=== PATIENT | female | born 1960 | race African-American/Black ===

== ENCOUNTER → 2016-11-09 | Outpatient (CLI) | payer OTHER ==
[2016-05-26 15:00] VITALS: BP 148/70
[~2016-11-09] MED LIST: ASPI81TA50 PO; BISO1TAB7 PO; CEPH-264 PO; DOCU-27 PO; GABA-586 PO; HYDR-2672 PO; IBUP-1027 PO; LOSA100T6 PO; MAGN400O4 PO; MORP30TA3 PO; RIVA15TA PO
--- NOTE | 2016-11-10 08:59 | KCIC ---
PROCEDURE Bilateral digital screening mammogram. HISTORY 56-year-old female presents for screening mammography. TECHNIQUE Full field digital craniocaudal and mediolateral oblique views of both breasts were obtained. Computer-aided detection is applied. COMPARISON 03/30/2013 FINDINGS Breast parenchymal composition: Level A - Mostly fat. There is a small nodule within the right axillary tail which is likely excluded from the field of view on the prior studies, the appearance of which is consistent with an axillary tail lymph node. There is a stable tiny nodule within the posterior retroareolar left breast. The near 4 year coarse of stability favors benignity. There are few benign calcifications within both breasts. There is no architectural distortion. IMPRESSION BI-RADS Category 2: Benign findings. Annual mammography is recommended. This study was interpreted with the benefit of Computerized Aided Detection (CAD). Mammography is not 100% sensitive in detecting breast cancer. Therefore, a self breast exam and a clinical breast exam are very important. A negative mammogram does not negate a clinically suspicious finding and should not result in a delay in biopsying a clinically suspicious abnormality. The patient information was entered into a reminder system with a target date for her next mammogram in year. Electronically signed by: Georgette Bartlett (November 10, 2016 08:58:07)
== END | disposition home or self-care (01) ==
LOC: KCIC MAMMO 16:21
PROVIDERS: ATTEND Family Medicine
DX: Z12.31 Encounter for screening mammogram for malignant neoplasm of breast (principal)
CPT/HCPCS: G0202; 77067

== ENCOUNTER 2016-12-14 07:44 | Outpatient (CLI) | payer OTHER ==
[~2016-12-14] VITALS: Ht 154.9 cm; Wt 102.1 kg
[2016-12-14 08:08] LABS: BASO # 0.1 x10^3/uL (0.0-0.2); BASO % 2 % (0-3); EOS % 3 % (0-3); HEMATOCRIT 40.1 % (36.0-47.0); HEMOGLOBIN 12.9 g/dL (12.0-15.5); LYMPH # 2.4 x10^3/uL (1.0-4.8); LYMPH % 33 % (24-48); MEAN CORPUSCULAR HEMOGLOBIN 26 pg (25-35); MEAN CORPUSCULAR HGB CONC 32 g/dL (31-37); MEAN CORPUSCULAR VOLUME 82 fL (79-100); MONO % 8 % (0-9); NEUT % 55 % (31-73); PLATELET COUNT 392 x10^3/uL (140-400); RED BLOOD COUNT 4.91 x10^6/uL (3.50-5.40); RED CELL DISTRIBUTION WIDTH 15.3 % (11.5-14.5); WHITE BLOOD COUNT 7.4 x10^3/uL (4.0-11.0)
[2016-12-14] MEDS ORDERED: GABA-585 PO (08:08)
[2016-12-14] MEDS ORDERED: SUMA100T4 PO (08:08)
[2016-12-14] MEDS ORDERED: LOSA1TAB17 PO (08:08)
[2016-12-14 08:20] LABS: INR 1.1 (0.8-1.1); PROTHROMBIN TIME PATIENT 13.5 SEC (11.7-14.0)
[2016-12-14 08:31] VITALS: BP 141/83
[2016-12-14] MEDS ORDERED: GADOBUTROL 7.5 MMOL/7.5 ML VIAL ONE (10:28)
[2016-12-14] MEDS ORDERED: LIDOCAINE 1% / SOD BICARB 8.4% 20 ML VIAL. IJ ONE ×2 (10:28→11:00)
[2016-12-14] MEDS ORDERED: fentaNYL PF VIAL 100 MCG/2 ML VIAL ONE ×2 (10:32→10:47)
[2016-12-14] MEDS ORDERED: MIDAZOLAM HCL/PF 2 MG/2 ML VIAL. ONE ×2 (10:33→10:47)
[2016-12-14] MEDS ORDERED: fentaNYL PF VIAL 100 MCG/2 ML VIAL IV ONE (11:00)
[2016-12-14] MEDS ORDERED: GADOBUTROL 7.5 MMOL/7.5 ML VIAL INT ART ONE (11:00)
[2016-12-14] MEDS ORDERED: MIDAZOLAM HCL/PF 2 MG/2 ML VIAL. IV ONE (11:00)
[2016-12-14 11:19] VITALS: BP 118/64
[2016-12-14 11:31] VITALS: BP 118/56
--- NOTE | 2016-12-14 11:41 | PDOC ---
MODERATE SEDATION ASSESSMENT RISKS/ALTERNATIVES Risks/Alternatives Risks and alternatives of this type of sedation and procedure discussed with: RISK/ALTERNATIVES: Patient H & P ON CHART H & P H & P on chart and reviewed for co-morbid conditions and appropriate labs. H&P ON CHART: Yes STATUS PREG STATUS ASSESSED: N/A MEDS/ALLERGIES REVIEWED Meds/Allergies Reviewed Medications and Allergies including time and route of recently administered narcotics and sedatives. MEDS/ALLERGIES REVIEWED: Yes ASA RATING ASA RATING: I AIRWAY ASSESSMENT Airway Assessment Airway patency, oral function limitations, presence of caps, crowns, dentures, partials, and ability to extend neck assessed. AIRWAY ASSESSMENT: Yes MALLAMPATI SCORE MALLAMPATI SCORE: II PRE-SEDATION ASSESSMENT PRE-SEDATION ASSESSMENT: Yes MACKENZIE GREEN MD Dec 14, 2016 11:41
[2016-12-14 11:51] VITALS: BP 126/73
--- NOTE | 2016-12-14 11:51 | PDOC1 ---
History and Physical Date of Procedure Date of Admission 12/14/16 Procedure Procedure Sono/fluoro guided IVC filter retrieval Indication Indication 56 YO female with left lower extremity DVT by Doppler 05/19/16. Retrievable Bard [place] IVC filter inserted 05/21/16 due to discontinuation of anticoagulation for L-spine fusion done 05/22/16. DVT and PE risk resolved---IVC filter retrieval requested. Past Medical History Past Medical History See Nursing Pre procedure PMH Past Surgical History Past Surgical History See Nursing Pre procedure PSH Current Medications Current Medications Current Medications Gadobutrol (Gadavist) 7.5 mmol STK-MED ONCE .ROUTE ; Start 12/14/16 at 10:28; Stop 12/14/16 at 10:29; Status DC Lidocaine/Sodium Bicarbonate (Buffered Lidocaine 1%) 20 ml STK-MED ONCE IJ ; Start 12/14/16 at 10:28; Stop 12/14/16 at 10:29; Status DC Heparin Sodium/ Sodium Chloride 500 ml @ As Directed STK-MED ONCE .ROUTE ; Start 12/14/16 at 10:29; Stop 12/14/16 at 10:30; Status DC Fentanyl Citrate (Fentanyl 2ml Vial) 100 mcg STK-MED ONCE .ROUTE ; Start at 10:32; Stop 12/14/16 at 10:33; Status DC Midazolam HCl (Versed) 2 mg STK-MED ONCE .ROUTE ; Start 12/14/16 at 10:33; Stop 12/14/16 at 10:34; Status DC Fentanyl Citrate (Fentanyl 2ml Vial) 100 mcg STK-MED ONCE .ROUTE ; Start at 10:47; Stop 12/14/16 at 10:48; Status DC Midazolam HCl (Versed) 2 mg STK-MED ONCE .ROUTE ; Start 12/14/16 at 10:47; Stop 12/14/16 at 10:48; Status DC Heparin Sodium/ Sodium Chloride 1,000 unit 1X ONCE IART Last administered on 11:18; Start 12/14/16 at 11:00; Stop 12/14/16 at 11:01; Status DC Lidocaine/Sodium Bicarbonate (Buffered Lidocaine 1%) 6 ml 1X ONCE IJ Last administered on 12/14/16 11:18; Start 12/14/16 at 11:00; Stop 12/14/16 at 11:01; Status DC Midazolam HCl (Versed) 3 mg 1X ONCE IV Last administered on 12/14/16 11:18; Start 12/14/16 at 11:00; Stop 12/14/16 at 11:01; Status DC Fentanyl Citrate (Fentanyl 2ml Vial) 150 mcg 1X ONCE IV Last administered on 11:19; Start 12/14/16 at 11:00; Stop 12/14/16 at 11:01; Status DC Gadobutrol (Gadavist) 7.5 mmol 1X ONCE INT ART Last administered on 12/14/16 11:18; Start 12/14/16 at 11:00; Stop 12/14/16 at 11:01; Status DC Active Scripts Active Reported Sumatriptan Succinate 100 Mg Tablet 100 Mg PO ONCE PRN Gabapentin 100 Mg Capsule 100 Mg PO TID Losartan-Hctz 100-25 Mg Tab (Losartan/Hydrochlorothiazide) 1 Each Tablet 1 Tab PO DAILY Bisoprolol-Hctz 10-6.25 Mg Tab (Bisoprolol Fumarate/Hctz) 1 Each Tablet 0.05 Tab PO DAILY Hydrocodone-Apap 10-325 (Hydrocodone Bit/Acetaminophen) 1 Each Tablet 1 Tab PO PRN Q6HRS PRN Aspir-Low (Aspirin) 81 Mg Tablet. 1 Tab PO DAILY Allergies Allergies: Coded Allergies: Iodinated Contrast Media - Oral and (Verified Allergy, Intermediate, Rash , 05/22/16) Physical Exam Vital Signs Vital Signs Date Time Temp Pulse Resp B/P (MAP) Pulse Ox O2 Delivery O2 Flow Rate FiO2 12/14/16 11:19 64 18 100 Nasal Cannula 2.0 12/14/16 08:31 98.6 141/83 (102) 98.6 Lungs: Clear to auscultation Heart: Regular rate Psych/Mental Status: Mental status NL Diagnostic Data/Imaging Images PMC IVC filter insertion images from 05/21/16 reviewed. Assessment Assessment DCT and PE risk resolved----IVC filter retrieval requested and indicated. Problems: Plan Plan Sono/fluoro guided IVC filter retrieval MACKENZIE GREEN MD Dec 14, 2016 11:51
--- NOTE | 2016-12-14 11:57 | PDOC ---
Exam Resident Physician In Radiology Resident Physician In Radiology Cora Professor Of Management Professor Of Management Antonio Palma Pre-Procedure Diagnosis Pre-Procedure Diagnosis 56 YO female s/p insertion of retrievable Bard [place] IVC filter 05/21/16 due to discontinuation of anticoagulation for left lower extremity DVT prior to L- spine fusion 05/22/16. Post-Procedure Diagnosis Post-Procedure Diagnosis Same Procedure Performed Procedure Performed Sono/fluoro guided retrieval of Bard [place] IVC filter. Type of Anesthesia Type of Anesthesia Local + Mod sedation. Estimated Blood Loss EBL: Minimal Specimens Specimans Bard [place] retrievable IVC filter removed and discarded Condition of Patient Condition of Patient Stable. No apparent complication. Disposition Disposition Home from [facility] post recovery, if no problems. F/u with referring MD. Full report to follow. MACKENZIE GREEN MD Dec 14, 2016 11:57
[2016-12-14 12:06] VITALS: BP 138/68
[2016-12-14 12:21] VITALS: BP 154/78
--- NOTE | 2016-12-14 15:02 | RAD ---
Ultrasound and Fluoroscopy guided snare retrieval of inferior vena cava filter Indication: 56-year-old female who was diagnosed with left lower extremity DVT 05/19/2016. She then underwent successful, uneventful insertion of a Bard [place] retrievable infrarenal inferior vena cava filter 05/21/2016, due to discontinuation of anticoagulation prior to lumbar spine surgery on 05/22/2016. Her DVT with risk of pulmonary embolus has resolved. IVC filter retrieval has been requested. Fluoroscopy time: Kerma-area product: 9.6 minutes 68 Contrast material: 30 cc gadolinium Anesthesia: 31 minutes moderate sedation was provided utilizing a total of 3 mg Versed and 150 mcg fentanyl, IV. The patient was appropriately monitored by a qualified independent observer throughout the time of moderate sedation. Sterility: All elements of maximal sterile barrier technique, hand hygiene, skin preparation, and, if ultrasound was used, sterile ultrasound technique were followed. Consent: The procedure was explained in its entirety to the patient and/or the patient's designated mill representative by a member of the treatment team. This included a discussion of risks and benefits and commonly accepted alternatives to the procedure, as well as expected consequences of no treatment at all. Discussion of risks included, but was not limited to, those that are most frequent and those that are rare, but possibly severe or life-threatening, as well as the possibility of unforeseen complications. Procedure: Informed consent was obtained from the patient. She was placed supine on the angiography table. Preliminary fluoroscopic evaluation confirmed the presence of a an indwelling retrievable Bard [place] inferior vena cava filter. Preliminary ultrasound examination of right neck revealed wide patency of right internal jugular vein. This was documented with a single hard copy ultrasound image. Right neck was then prepped and draped in the usual sterile fashion, utilizing all elements of maximal sterile barrier technique, as described above. Moderate sedation was provided with IV Versed and fentanyl. Using aseptic technique, local anesthesia, direct sterile ultrasound guidance, and the micropuncture system, a 5 Stateless right IJ sheath was successfully introduced. A 5 Stateless Omni Flush catheter was advanced through the IJ sheath, and was successfully advanced inferiorly to lie adjacent to the indwelling inferior vena cava filter utilizing fluoroscopic guidance. Gadolinium was then injected and DSA images were obtained, which revealed brisk antegrade flow through inferior vena cava, without obstructing thrombus identified within the filter. The 5 Stateless right IJ sheath was then removed over a guidewire. The percutaneous tract was dilated and a 10 Stateless 40 cm long right IJ sheath was advanced into suprarenal inferior vena cava. A 7 Stateless 55 cm long sheath was then coaxially inserted through the 10 Stateless sheath and was positioned immediately above the IVC filter. Using aseptic technique and fluoroscopic guidance, an En Snare endovascular snare was advanced through the 7 Stateless sheath and was utilized to successfully engage retrieval hook of the Bard [place] IVC filter. The 7 Stateless sheath was then advanced over the snare, producing partial collapse of the IVC filter. The 10 Stateless sheath was then advanced over the 7 Stateless sheath and snare, producing essentially complete collapse of the IVC filter. The 7 Stateless sheath, and the intravascular snare, and the collapsed IVC filter were then completely removed from the body through the 10 Stateless sheath. Careful bench inspection of the removed the Mchenry IVC filter confirmed complete filter removal, without component fracture. Gadolinium was then injected through the 10 Stateless sheath and completion IVC gram DSA images were obtained. Those images confirmed complete removal of the IVC filter, without evidence of residual radiopaque filter fragment. Those images revealed some luminal irregularity of inferior vena cava, without contrast extravasation. The 10 Stateless sheath was then removed and hemostasis was achieved with V pad and manual pressure over right internal jugular vein. Patient tolerated the procedure well without apparent complication. Impression: Successful, uneventful ultrasound and fluoroscopy guided removal of infrarenal Bard [place] retrievable IVC filter, as described.
== END 2016-12-14 13:18 | disposition home or self-care (01) ==
LOC: INTRAD 07:44
PROVIDERS: ATTEND Internal Medicine Hematology & Oncology
DX: I82.402 Acute embolism and thrombosis of unspecified deep veins of left lower extremity (principal); I10 Essential (primary) hypertension; K21.9 Gastro-esophageal reflux disease without esophagitis; Z86.69 Personal history of other diseases of the nervous system and sense organs; Z83.3 Family history of diabetes mellitus
CPT/HCPCS: 36415; 37193; 85027; 85610; C1769; C1892; C1894; J2250; J3010; 99152; 99153; A9585

== ENCOUNTER 2021-05-09 06:05 | Day surgery (SDC) | payer OTHER ==
[~2021-05-09] VITALS: Ht 154.9 cm; Wt 113.6 kg
[~2021-05-09 06:05] MED LIST changes: -BISO1TAB7 PO; +BISO1TAB84 PO; +DOCU-109 PO; -DOCU-27 PO; +GABA-585 PO; -GABA-586 PO; +GABA300C18 PO; -HYDR-2672 PO; +HYDR-2769 PO; +LOSA100T14 PO; -LOSA100T6 PO; +LOSA1TAB22 PO; -MAGN400O4 PO; +MAGN400O7 PO; +MORP-16 PO; -MORP30TA3 PO; +SUMA100T4 PO
[2021-05-09 06:47] VITALS: BP 176/94
[2021-05-09] MEDS ORDERED: PROPOFOL 10 MG/ML (20ML) VIAL. IV ONE (06:54)
[2021-05-09] MEDS ORDERED: IV RINGERS,LACTATED 1000ML 1,000 ML IV ONE (07:00)
[2021-05-09 07:43] VITALS: BP 170/96
--- NOTE | 2021-05-12 18:06 | PATHOLOGY ---
[facility] Accession Number: [id number] . 01 Material submitted: . cecum - CECAL POLYP . 01 Clinical history: . CRC COLONOSCOPY . 02 Diagnosis: Large bowel "cecal polyp", biopsy: - Tubular adenoma; negative for high-grade dysplasia and malignancy. (MLK:shannan; 05/12/2021) S 05/12/2021 1247 Local . 02 Electronically signed: . Nesha Chan MD, Pathologist NPI- [id number] . 01 Gross description: . The specimen is submitted in formalin, labeled "VanRoss, Izabel, cecal polyp". Received are multiple segments of pale sepulveda tissue ranging in size from 0.2 to 0.4 cm in maximum dimensions. The specimen is submitted entirely in cassette A1. ([facility]; 05/09/2021) NRI/NRI 05/09/2021 2124 Local . 02 Pathologist provided ICD-10: D12.0 . 02 CPT . 907043 Specimen Comment: A courtesy copy of this report has been sent to [phone], [phone] Specimen Comment: [id number] Specimen Comment: Report sent to , DR BASURTO Performed at: 01 [facility] [address] [facility] [address], [place], [place] [id number] MD Shabbir Garrido MD Phone: [phone] Performed at: 02 [facility] [address] [place], [place] [id number] MD Ta Ramos MD Phone: [phone]
== END 2021-05-09 08:04 | disposition home or self-care (01) ==
LOC: ENDOS 06:05
PROVIDERS: ATTEND Internal Medicine Gastroenterology
DX: Z12.11 Encounter for screening for malignant neoplasm of colon (principal); D12.0 Benign neoplasm of cecum; K64.0 First degree hemorrhoids; K57.30 Diverticulosis of large intestine without perforation or abscess without bleeding; K63.89 Other specified diseases of intestine; I10 Essential (primary) hypertension; K21.9 Gastro-esophageal reflux disease without esophagitis; Z79.82 Long term (current) use of aspirin; Z79.899 Other long term (current) drug therapy; Z98.890 Other specified postprocedural states; Z91.041 Radiographic dye allergy status
CPT/HCPCS: 45380; 88305; J2704